=== PATIENT | male | born 1970 | race Two or more races ===

== ENCOUNTER 2019-05-08 11:23 | Emergency (ER) | payer SELFPAY ==
[~2019-05-08] VITALS: Ht 167.6 cm; Wt 81.6 kg
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
[2019-05-08 11:50] VITALS: BP 129/82
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
[2019-05-08] MEDS ORDERED: Methocarbamol 750mg tab ORAL ONE (12:30)
[2019-05-08] MEDS ORDERED: IBUPROFEN600 MG ORAL (12:43)
[2019-05-08] MEDS ORDERED: ROBAXIN-750750 MG PO (12:43)
[2019-05-08] MEDS ORDERED: LIDODERM700 M1 TOPIC (12:43)
[2019-05-08 13:04] VITALS: BP 130/82
--- NOTE | 2019-05-08 13:04 | NUR ---
ER DISCHARGE NOTE: Patient is cleared to be discharged per ERMD, pt is aox4, on room air, with stable vital signs. pt was given dc and prescription instructions, pt was able to verbalize understanding, pt id band removed without complications. pt is able to ambulate with steady gait. pt took all belongings.
== END 2019-05-08 13:04 | disposition home or self-care (01) ==
LOC: EMR 12:30
DX: S40.012A Contusion of left shoulder, initial encounter (principal); S16.1XXA Strain of muscle, fascia and tendon at neck level, initial encounter; M62.838 Other muscle spasm; V43.52XA Car driver injured in collision with other type car in traffic accident, initial encounter; Y92.410 Unspecified street and highway as the place of occurrence of the external cause
CPT/HCPCS: 99282